=== PATIENT | male | born 1985 | race African-American/Black ===

== ENCOUNTER 2017-03-03 20:33 | Emergency (ER) | payer SELFPAY ==
[~2017-03-03] VITALS: Ht 193 cm; Wt 102.0 kg
[~2017-03-03 20:33] MED LIST: PERM5CRE4 TOP
[2017-03-03 20:35] VITALS: BP 158/88; PULSE 70; RESP 16; TEMP 98.4; O2SAT 99
[2017-03-03] MEDS ORDERED: AMOXICILLIN (TRIHYDRATE) 500 MG CAP PO ONE (21:45)
[2017-03-03] MEDS ORDERED: ACETAMINOPHEN/HYDROcodone 325 MG/5 MG TAB PO ONE (21:45)
[2017-03-03] MEDS ORDERED: AMOX500T PO (21:46)
[2017-03-03] MEDS ORDERED: DICL75TA PO (21:46)
--- NOTE | 2017-03-03 21:52 | PD ---
HPI Chief Complaint: Oral / Dental Pain or Problem Time Seen by Provider: 21:32 Travel History International Travel<30 days: No Contact w/Intl Traveler<30days: No Traveled to known affect area: No History of Present Illness HPI 31-year-old black male presents to emergency Department with complaints of dental pain. He states that his left upper tooth #16 is been bothering him since yesterday. He claims that this has bothered him in the past but he has never seen a dentist. States the pain is moderate. No alleviating factors no exacerbating factors. States it radiates up into his head. No fever chills. No drainage. No sore throat. PFSH Past Medical History Medical History: Denies Significant Hx Tetanus Vaccination: Unknown Influenza Vaccination: No Past Surgical History Other Surgery: Yes (RT LEG SURGERY TO REPAIR LARGE LACERATION WHEN A CHILD) Social History Alcohol Use: No Tobacco Use: Yes (/ PPD) Substance Use: Yes (MARIJUANA) Allergies-Medications (Allergen,Severity, Reaction): Coded Allergies: No Known Allergies (Verified , 08/24/13) Reported Meds & Prescriptions Reported Meds & Active Scripts Active Diclofenac Sodium DR (Diclofenac Sodium) 75 Mg Tabdr 75 Mg PO BID Amoxicillin 500 Mg Tab 500 Mg PO TID Review of Systems General / Constitutional: No: Fever Eyes: No: Visual changes HENT: Positive: Dental Difficulties, No: Headaches, Sore Throat, Neck Pain, Masses, Gingival Bleeding, Ear Discharge, Earache Cardiovascular: No: Chest Pain or Discomfort Respiratory: No: Shortness of Breath Gastrointestinal: No: Abdominal Pain Genitourinary: No: Dysuria Musculoskeletal: No: Pain Skin: No Rash Neurologic: No: Weakness Psychiatric: No: Depression Endocrine: No: Polydipsia Hematologic/Lymphatic: No: Easy Bruising Physical Exam Narrative GENERAL: Well-developed, well-nourished in no acute distress. Nontoxic appearing. HEAD: Normocephalic, atraumatic. EYES: Pupils equal round and reactive. Extraocular motions intact. No scleral icterus. No injection or drainage. ENT: TMs clear without erythema. The external auditory canals clear. Nose: clear . Posterior pharynx is pink and moist. No tonsillar edema or exudate. Uvula midline. Airway patent. Patient points to his tooth #16. Is slightly impacted but there is no obvious gingival erythema or edema. No large carry. NECK: Trachea midline.Supple, nontender, moves head freely. No central bony tenderness or spasm. CARDIOVASCULAR: Regular rate and rhythm without murmurs, gallops, or rubs. RESPIRATORY: Clear to auscultation. Breath sounds equal bilaterally. No wheezes , rales, or rhonchi. GASTROINTESTINAL: Abdomen soft, non-tender, nondistended. No hepato-splenomegaly , or palpable masses. No guarding. EXTREMITIES: No clubbing, cyanosis, or edema. No joint tenderness, effusion, or edema noted. BACK: Nontender without deformity or crepitance. No flank tenderness. Data Data Last Documented VS Vital Signs Date Time Temp Pulse Resp B/P (MAP) Pulse Ox O2 Delivery O2 Flow Rate FiO2 03/03/17 20:35 98.4 70 16 158/88 (111) 99 Room Air Orders Orders Amoxicillin (Trimox) (03/03/17 21:45) Acetamin-Hydrocod 325-5 Mg ([place] 5-325 (03/03/17 21:45) MDM Medical Decision Making Medical Screen Exam Complete: Yes Emergency Medical Condition: Yes Medical Record Reviewed: Yes Differential Diagnosis MDM: Moderate Differential diagnoses: Dental abscess, dental caries, osteitis, cellulitis Narrative Course Patient's given amoxicillin 500 and Lortab 5 a grams by mouth. This is dentalgia Diagnosis Primary Impression: Dentalgia Patient Instructions: Narcotic given in the ED, General Instructions Additional Instructions: Rest. Saltwater gargles. Hayes oil on cotton balls. Amoxicillin and diclofenac. follow-up with a dentist as soon as possible. And return to the ER if any problems. Med/Other Pt SpecificInfo: Prescription(s) given Scripts Diclofenac Sodium DR (Diclofenac Sodium DR) 75 Mg Tabdr 75 MG PO BID, #20 TAB 0 Refills Prov: Alok Rubio MD 03/03/17 Amoxicillin (Amoxicillin) 500 Mg Tab 500 MG PO TID for Infection, #30 TAB 0 Refills Prov: Alok Rubio MD 03/03/17 Disposition: 01 DISCHARGE HOME Condition: Stable Dario Flynn Mar 03, 2017 21:52
== END 2017-03-03 22:50 | disposition home or self-care (01) ==
LOC: NEPK 20:33
DX: K08.9 Disorder of teeth and supporting structures, unspecified (principal); Z72.0 Tobacco use
CPT/HCPCS: 99284